=== PATIENT | female | born 1955 | race Hispanic/Latino ===

== ENCOUNTER 2017-04-02 10:56 | Outpatient (CLI) | payer BC ==
--- NOTE | 2017-04-02 12:24 | XRay Report ---
LUMBAR SPINE RADIOGRAPHS: INDICATION: Lumbosacral arthralgia of back. COMPARISON: None similar. FINDINGS: AP, oblique and lateral lumbar spine radiographs demonstrate normal vertebral body stature and alignment. Slight lumbar degenerative spurring from L2 inferiorly. Mid to lower lumbar facet arthropathy suspected. Mild L4-L5 and L5-S1 disc narrowing may also be present. Possible osteopenia. No evidence of a pars defect. Nonobstructive bowel gas pattern. Numerous pelvic phleboliths. Some extrinsic clothing artifacts. Approximately 4.7 cm calcified gallstone with a dense 2.6 cm intrinsic calcification. An IVC filter projects over L3 and L4 on the right. Intact SI joints. CONCLUSION: No acute lumbar radiographic abnormality with various other findings, including cholelithiasis as also degenerative and post surgical changes, as described above. Thank you for the opportunity to participate in this patient's care.
--- NOTE | 2017-04-03 10:16 | XRay Report ---
Bilateral knees, 3 views of each: Chronic knee pain. Articular spurs are present involving the medial compartment of the left knee with no apparent joint narrowing. The articular surfaces are smooth and the knee is aligned. The bones are well-mineralized. No effusion. Minimal articular spurs are present involving the medial right knee compartment. The articular margins are smooth and there is no significant joint narrowing identified. No effusion. Bones well mineralized. Normal alignment. Impression: Minimal periarticular medial joint compartment changes bilaterally. No acute findings.
--- NOTE | 2017-04-03 10:22 | XRay Report ---
Bilateral hands, 3 views of each: Arthritis, pain. Degenerative spurs are identified involving the DIP joints of the second and third digits of the right hand. There is apparent narrowing of the second joint space and possibly the third. Similar but less severe degenerative changes are identified involving the second and third digits of the left hand. The visualized bones and joints are otherwise unremarkable. No demineralization noted. No erosions. No soft tissue swelling apparent. 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
== END 2017-04-02 10:57 | disposition home or self-care (01) ==
LOC: XRAY 10:56
PROVIDERS: ATTEND Internal Medicine
DX: M13.842 Other specified arthritis, left hand (principal); M13.841 Other specified arthritis, right hand; M54.9 Dorsalgia, unspecified; M25.562 Pain in left knee; M25.561 Pain in right knee; M54.5 Low back pain; I87.8 Other specified disorders of veins; K80.20 Calculus of gallbladder without cholecystitis without obstruction; K82.8 Other specified diseases of gallbladder
CPT/HCPCS: 72110

== ENCOUNTER 2017-04-03 14:29 | Outpatient (CLI) | payer BC ==
--- NOTE | 2017-04-04 16:11 | Mammography Report ---
BILATERAL DIGITAL SCREENING MAMMOGRAM with CAD : 04/03/17 14:29:00 CLINICAL: Routine screening. COMPARISON:09/08/13 FINDINGS: The breasts are heterogeneously dense, which may obscure small masses. No mass, architectural distortion or suspicious calcifications. IMPRESSION: No mammographic evidence of malignancy. BI-RADS CATEGORY: 2 -- Benign RECOMMENDATION: Routine mammographic screening in one year. COMMENT: Patient follow-up letters are generated by our [employer] application.
== END 2017-04-03 14:30 | disposition home or self-care (01) ==
LOC: MAMMO 14:29
PROVIDERS: ATTEND Internal Medicine
DX: Z12.31 Encounter for screening mammogram for malignant neoplasm of breast (principal)
CPT/HCPCS: 77067; G0202

== ENCOUNTER 2018-04-04 09:35 | Outpatient (CLI) | payer BC ==
--- NOTE | 2018-04-04 12:27 | Mammography Report ---
BILATERAL DIGITAL SCREENING MAMMOGRAM with CAD: 04/04/18 09:35:00 CLINICAL: Routine screening. COMPARISON:04/03/17 FINDINGS: There are scattered areas of fibroglandular density. No mass, architectural distortion or suspicious calcifications. IMPRESSION: No mammographic evidence of malignancy. BI-RADS CATEGORY: 2 -- Benign RECOMMENDATION: Routine mammographic screening in one year. COMMENT: Patient follow-up letters are generated by our [employer] application.
== END 2018-04-04 09:36 | disposition home or self-care (01) ==
LOC: MAMMO 09:35
PROVIDERS: ATTEND Internal Medicine
DX: Z12.31 Encounter for screening mammogram for malignant neoplasm of breast (principal)
CPT/HCPCS: 77067